=== PATIENT | male | born 1995 | race Two or more races ===

== ENCOUNTER 2024-02-11 00:37 | Emergency (ER) | payer MEDICAID, OTHER ==
[~2024-02-11] VITALS: Ht 170.2 cm; Wt 120.0 kg
[2024-02-11 01:37] VITALS: BP 116/36; PULSE 89; RESP 18; TEMP 97.8; O2SAT 97
[2024-02-11] MEDS ORDERED: HYDROcodone-ACET 5/325MG TAB PO ONE (01:45)
[2024-02-11] MEDS: KETOROLAC TROMETH 30 MG/ML 1ML VIAL IM ONE (02:19)
== END 2024-02-11 02:34 | disposition home or self-care (01) ==
LOC: EDBD 00:37 → ER 00:37
DX: M79.605 Pain in left leg (principal); M79.604 Pain in right leg; Z59.00 Homelessness unspecified
CPT/HCPCS: 96372; 99283; J1885

== ENCOUNTER 2024-02-11 04:47 | Emergency (ER) | payer MEDICAID ==
[~2024-02-11] VITALS: Ht 165.1 cm; Wt 127.8 kg
[2024-02-11 07:07] LABS: Basophils # (auto) 0.1 10 ^3/uL (0-0.2); Eosinophils # (auto) 0.4 10 ^3/uL (0-0.8); Hemoglobin 13.9 g/dL (13.5-17.5); Monocytes # (auto) 0.8 10 ^3/uL (0-1.3)
[2024-02-11 07:10] LABS: Basophils % (auto) 0.6 % (0.0-2.0); Eosinophils % (auto) 3.4 % (0.0-7.0); Hematocrit 41.4 % (41.0-53.0); Lymphocytes # (auto) 2.6 10 ^3/uL (0.4-5.4); Lymphocytes % (auto) 24.4 % (10.0-50.0); Mean Corpuscular Hgb Conc. 33.5 g/dL (32.0-36.0); Mean Corpuscular Volume 86.7 fL (80.0-100.0); Monocytes % (auto) 7.2 % (0.0-12.0); Neutrophils # (auto) 6.9 10 ^3/uL (1.6-8.6); Neutrophils % (auto) 64.4 % (37.0-80.0); Red Blood Cells 4.77 10^6/uL (4.5-5.90); Red Cell Distribution Width 15.4 % (11.8-14.3); White Blood Cell 10.7 10^3/uL (4.4-10.8)
[2024-02-11 07:23] LABS: Alanine Aminotransferase 39 U/L (7-40); Albumin 4.2 g/dL (3.2-4.8); Alkaline Phosphatase 153 U/L (46-116); Anion Gap 5 (5-15); Aspartate Aminotransferase 16 U/L (13-40); BUN/Creatinine Ratio 12.9 (10.0-20.0); Bilirubin, Total 0.3 mg/dL (0.2-1.0); Blood Alcohol < 3.0 mg/dL (<10); Blood Urea Nitrogen 12 mg/dL (9-23); Calcium 9.3 mg/dL (8.5-10.1); Carbon Dioxide 26 mmol/L (20-30); Chloride 109 mmol/L (98-107); Glucose 133 mg/dL (74-106); Potassium 3.7 mmol/L (3.5-5.1); Sodium 140 mmol/L (136-145)
[2024-02-11 07:27] LABS: Acetaminophen < 2.0 UG/ML (10.0-20.0); Salicylate < 3.0 mg/dL (2.8-20.0)
[2024-02-11 07:51] LABS: Urine Bacteria None Seen /hpf (None Seen)
[2024-02-11 08:15] LABS: Amphetamine Screen, Urine Pos (NEGATIVE); Barbiturate Scree,Urine Neg (NEGATIVE); Benzodiazephine Screen, Urine Neg (NEGATIVE); Cocaine Screen, Urine Neg (NEGATIVE); Opiate Scree,Urine Neg (NEGATIVE)
[2024-02-11 08:16] LABS: Cannabinoid Screen, Urine Pos (NEGATIVE); Phencyclidine Screen, Urine Neg (NEGATIVE)
[2024-02-11 08:17] LABS: Urine Blood Negative /uL (Negative); Urine Clarity Turbid (Clear); Urine Color Yellow (Yellow); Urine Mucus MODERATE (None Seen); Urine Protein, UAD 1+ (Negative); Urine Specific Gravity 1.036 (1.001-1.035); Urine Urobilinogen Normal (Negative); Urine WBC 4 /hpf (0 - 3)
[2024-02-11 11:14] VITALS: PULSE 58; RESP 16; O2SAT 96
[2024-02-11 19:59] VITALS: PULSE 58; RESP 16; O2SAT 96
[2024-02-12 01:30] VITALS: RESP 16
[2024-02-12 07:33] VITALS: PULSE 65; RESP 16; O2SAT 94
[2024-02-12] MEDS: FLUoxetine HCL 20 MG CAP PO SCH (10:04)
[2024-02-12 19:30] VITALS: PULSE 69; RESP 16; O2SAT 94
[2024-02-13 07:30] VITALS: PULSE 73; RESP 16; O2SAT 97
[2024-02-13 19:30] VITALS: PULSE 71; RESP 17; O2SAT 96
[2024-02-13 19:40] VITALS: PULSE 85; PULSE 93; RESP 11; RESP 16; O2SAT 94; O2SAT 95
[2024-02-14 08:00] VITALS: PULSE 91; RESP 16; O2SAT 96
[2024-02-14] MEDS: FLUoxetine HCL 20 MG CAP ONE (19:30)
[2024-02-15 08:48] VITALS: BP 135/79; TEMP 98
[2024-02-15 09:00] VITALS: PULSE 81; RESP 19; O2SAT 96
== END 2024-02-15 09:25 | disposition home or self-care (01) ==
LOC: ER 04:47
DX: R45.851 Suicidal ideations (principal); F15.90 Other stimulant use, unspecified, uncomplicated; Z59.00 Homelessness unspecified
CPT/HCPCS: 36415; 80053; 80307; 80320; 80329; 81001; 85025